=== PATIENT | male | born 1975 | race Caucasian/White ===

== ENCOUNTER 2020-06-18 02:04 | Emergency (ER) | payer OTHER | END 2020-06-18 04:20 | disposition home or self-care (01) | LOC: ER1 02:04 | DX: Z20.822 Contact with and (suspected) exposure to COVID-19 (principal) | CPT/HCPCS: 99283; U0002 ==

== ENCOUNTER → 2022-01-13 | Outpatient (CLI) | payer OTHER ==
[2022-01-13 11:20] LABS: HEMOGLOBIN 14.5 gm/dl (14.0-17.5); RED BLOOD COUNT 4.75 M/UL (4.20-5.50); WHITE BLOOD COUNT 5.4 K/UL (4.5-11.0)
[2022-01-13 11:44] LABS: BUN/CREATININE RATIO 23 (0-10)
== END ==
LOC: LAB 09:41
PROVIDERS: Nurse Practitioner Family
DX: M25.512 Pain in left shoulder (principal); M54.2 Cervicalgia; I10 Essential (primary) hypertension; Z12.5 Encounter for screening for malignant neoplasm of prostate; E53.8 Deficiency of other specified B group vitamins; E55.9 Vitamin D deficiency, unspecified; M47.812 Spondylosis without myelopathy or radiculopathy, cervical region
CPT/HCPCS: 36415; 72040; 73030; 80053; 80061; 82607; 84153; 84439; 84443; 85025

== ENCOUNTER → 2022-01-28 | Outpatient (CLI) | payer OTHER | LOC: KOH-I 10:27 | DX: M50.223 Other cervical disc displacement at C6-C7 level (principal); G95.29 Other cord compression | CPT/HCPCS: 72141 ==

== ENCOUNTER → 2022-02-11 | Outpatient (CLI) | payer OTHER ==
[~2022-02-11] MED LIST: CYCLOBENZAPRINE10 MG PO; LISINOPRIL5 MG PO; MULTIVITAMIN1 EACH PO; NAPROXEN500 MG PO
[2022-02-11 13:54] LABS: RED BLOOD COUNT 4.86 M/UL (4.20-5.50); WHITE BLOOD COUNT 6.6 K/UL (4.5-11.0)
[2022-02-11 14:29] LABS: BUN/CREATININE RATIO 17 (0-10)
== END ==
LOC: EDSTATUS 12:30 → OPSV2 12:30
PROVIDERS: Orthopaedic Surgery
DX: Z01.818 Encounter for other preprocedural examination (principal); M54.12 Radiculopathy, cervical region
CPT/HCPCS: 71046; 80048; 81001; 85025; 87081; 93005

== ENCOUNTER → 2022-02-12 | Outpatient (CLI) | payer OTHER | LOC: KOH-I 08:55 | DX: M54.12 Radiculopathy, cervical region (principal) | CPT/HCPCS: 72125 ==